=== PATIENT | male | born 1965 | race Two or more races ===

== ENCOUNTER 2022-11-18 21:51 | Inpatient (IN) | payer MEDICARE, OTHER ==
[~2022-11-18] VITALS: Ht 172.7 cm; Wt 89.5 kg
[2022-11-18 22:39] LABS: Basophils # (auto) 0 10 ^3/uL (0-0.2); Basophils % (auto) 0.2 % (0.0-2.0); Eosinophils # (auto) 0.1 10 ^3/uL (0-0.8); Eosinophils % (auto) 0.5 % (0.0-7.0); Hematocrit 35.2 % (41.0-53.0); Hemoglobin 11.5 g/dL (13.5-17.5); Lymphocytes # (auto) 0.6 10 ^3/uL (0.4-5.4); Lymphocytes % (auto) 5.4 % (10.0-50.0); Mean Corpuscular Hemoglobin 32.5 pg (28.0-32.0); Mean Corpuscular Hgb Conc. 32.7 g/dL (32.0-36.0); Mean Corpuscular Volume 99.4 fL (80.0-100.0); Monocytes # (auto) 0.6 10 ^3/uL (0-1.3); Monocytes % (auto) 5.4 % (0.0-12.0); Neutrophils # (auto) 10.6 10 ^3/uL (1.6-8.6); Neutrophils % (auto) 88.5 % (37.0-80.0); Nucleated Red Blood Cells % 0.1 %; Red Blood Cells 3.54 10^6/uL (4.5-5.90); White Blood Cell 11.9 10^3/uL (4.4-10.8)
[2022-11-18 22:56] LABS: Albumin 3.7 g/dL (3.4-5.0); Anion Gap 11 (5-15); Blood Alcohol < 3.0 mg/dL (0-5); Calcium 8.5 mg/dL (8.5-10.1); Carbon Dioxide 22 mmol/L (21-32); Chloride 104 mmol/L (98-107); Glucose 180 mg/dL (74-106); Magnesium 2.8 mg/dL (1.6-2.6); Salicylate < 1.7 mg/dL (2.8-20.0); Sodium 137 mmol/L (136-145)
[2022-11-18 22:59] LABS: Alanine Aminotransferase 62 U/L (16-61); Alkaline Phosphatase 118 U/L (45-117); Aspartate Aminotransferase 70 U/L (15-37); BUN/Creatinine Ratio 7.3 (10.0-20.0); Bilirubin, Total 0.4 mg/dL (0.2-1.0); GFR African American 4 mL/min; GFR Non-African American 4 mL/min; Total Protein 7.4 g/dL (6.4-8.2)
[2022-11-18 23:13] LABS: Acetaminophen < 2.0 ug/mL (10-30)
[2022-11-18 23:15] LABS: Potassium 5.6 mmol/L (3.5-5.1)
[2022-11-18 23:24] LABS: Blood Urea Nitrogen 110 mg/dL (7-18)
[2022-11-18 23:52] LABS: INR 0.94 (0.9-1.15); Partial Thromboplastin Time 30.1 sec (24.6-33.4)
[2022-11-19] MEDS ORDERED: InsuLIN REG 1unit/0.01ml Soln (100units/ml) IV ONE
[2022-11-19] MEDS ORDERED: DEXTROSE (50%) 50ML SYRG IV ONE
[2022-11-19] MEDS: CALCIUM GLUC 1,000mg/50ml-NS 50 ML IV SCH ×2 (01:07→01:17)
[2022-11-19] MEDS ORDERED: DEXTROSE 10% 250 ML IV ONE (01:13)
[2022-11-19] MEDS ORDERED: AZITHROMYCIN 500MG/ 250ML 250 ML IV ONE (02:15)
[2022-11-19] MEDS ORDERED: cefTRIAXone 1GM/50ML D5W 50 ML IV ONE (02:15)
[2022-11-19] MEDS ORDERED: HEPARIN SODIUM (PORCINE) 5000 UNITS/ML 1ML VIAL IV ONE (02:15)
[2022-11-19] MEDS ORDERED: HEPARIN DRIP/D5W 100UNITS/ML 250 ML IV SCH ×2 (02:15→02:45)
[2022-11-19] MEDS ORDERED: NITROGLYCERIN 50MG/250ML 250 ML IV ONE (02:15)
[2022-11-19] MEDS ORDERED: hydrALAZINE HCL 20 MG/ML VL IV ONE (02:45)
[2022-11-19 03:35] LABS: Albumin 3.8 g/dL (3.4-5.0); Calcium 9.3 mg/dL (8.5-10.1); Potassium 4.8 mmol/L (3.5-5.1)
[2022-11-19 03:39] LABS: BUN/Creatinine Ratio 7.6 (10.0-20.0); Bilirubin, Total 0.5 mg/dL (0.2-1.0)
[2022-11-19] MEDS ORDERED: hydrALAZINE HCL 20 MG/ML VL IV PRN (03:45)
[2022-11-19] MEDS ORDERED: NITROGLYCERIN 0.4 MG SL TAB SL PRN (03:45)
[2022-11-19] MEDS ORDERED: SODIUM ZIRCONIUM CYCL 10 GM PAK PO ONE (03:45)
[2022-11-19] MEDS ORDERED: DEXTROSE (50%) 50ML SYRG IV PRN (03:45)
[2022-11-19] MEDS ORDERED: ACETAMINOPHEN 325 MG TAB PO PRN (03:45)
[2022-11-19] MEDS ORDERED: ONDANSETRON HCL 4 MG/2 ML VIAL IV PRN (03:45)
[2022-11-19] MEDS ORDERED: MORPHINE SULFATE INJ 2 MG/ml SYRG IV PRN (03:45)
[2022-11-19 03:48] LABS: Basophils # (auto) 0.1 10 ^3/uL (0-0.2); Basophils % (auto) 1.1 % (0.0-2.0); Eosinophils # (auto) 0 10 ^3/uL (0-0.8); Eosinophils % (auto) 0.2 % (0.0-7.0); Hematocrit 35.9 % (41.0-53.0); Hemoglobin 12.1 g/dL (13.5-17.5); Lymphocytes % (auto) 11.4 % (10.0-50.0); Mean Corpuscular Hemoglobin 33.7 pg (28.0-32.0); Mean Corpuscular Hgb Conc. 33.7 g/dL (32.0-36.0); Monocytes # (auto) 0.7 10 ^3/uL (0-1.3); Monocytes % (auto) 7.8 % (0.0-12.0); Neutrophils # (auto) 7.3 10 ^3/uL (1.6-8.6); Neutrophils % (auto) 79.5 % (37.0-80.0); Red Blood Cells 3.59 10^6/uL (4.5-5.90); White Blood Cell 9.2 10^3/uL (4.4-10.8)
[2022-11-19] MEDS: ACCU-CHEK COMFORT CURVE STRIP VI SCH ×4 (06:00→23:18)
[2022-11-19] MEDS ORDERED: HYDROcodone-ACET 5/325MG TAB PO PRN (06:15)
[2022-11-19] MEDS: InsuLIN REG 1unit/0.01ml Soln (100units/ml) SC SCH ×4 (06:42→23:28)
[2022-11-19] MEDS: cefTRIAXone 1GM/50ML D5W 50 ML IV SCH (09:19)
[2022-11-19] MEDS ORDERED: PANTOPRAZOLE 40 MG TAB PO SCH (10:00)
[2022-11-19] MEDS: AZITHROMYCIN 500MG/ 250ML 250 ML IV SCH (10:31)
[2022-11-19] MEDS: amLODIPine BESYLATE 5 MG TAB PO SCH (10:34)
[2022-11-19] MEDS: ASPirin 81 mg TAB PO SCH (10:34)
[2022-11-19] MEDS: CARVEDILOL 3.125 MG TAB PO SCH ×2 (10:34→21:59)
[2022-11-19 12:03] LABS: INR 0.95 (0.9-1.15); Partial Thromboplastin Time 33.3 sec (24.6-33.4)
[2022-11-19 12:03] LABS: Urine Bacteria FEW /hpf (None Seen); Urine Blood TRACE /uL (Negative); Urine Specific Gravity 1.012 (1.001-1.035); Urine WBC 1 /hpf (0 - 3)
[2022-11-19 12:12] LABS: Alcohol, Urine < 3.0 mg/dL (0-10); Amphetamine Screen, Urine NEGATIVE (NEGATIVE); Barbiturate Scree,Urine NEGATIVE (NEGATIVE); Benzodiazephine Screen, Urine NEGATIVE (NEGATIVE); Cannabinoid Screen, Urine NEGATIVE (NEGATIVE); Cocaine Screen, Urine NEGATIVE (NEGATIVE); Opiate Scree,Urine NEGATIVE (NEGATIVE); Phencyclidine Screen, Urine NEGATIVE (NEGATIVE)
[2022-11-19 19:03] LABS: Magnesium 2.6 mg/dL (1.6-2.6); Phosphorus 8.1 mg/dL (2.5-4.90)
[2022-11-19] MEDS: ATORVASTATIN 20 MG TAB PO SCH (21:59)
[2022-11-19 22:00] VITALS: BP 137/79
[2022-11-20] MEDS ORDERED: GABA-339 PO (00:53)
[2022-11-20] MEDS ORDERED: ATOR10TA52 PO (00:53)
[2022-11-20] MEDS ORDERED: ASPI-543 PO (00:53)
[2022-11-20 05:00] VITALS: BP 145/87
[2022-11-20] MEDS: InsuLIN REG 1unit/0.01ml Soln (100units/ml) SC SCH ×4 (05:22→23:22)
[2022-11-20] MEDS: ACCU-CHEK COMFORT CURVE STRIP VI SCH ×5 (05:23→23:23)
[2022-11-20 05:46] LABS: Basophils # (auto) 0 10 ^3/uL (0-0.2); Basophils % (auto) 0.4 % (0.0-2.0); Eosinophils # (auto) 0.1 10 ^3/uL (0-0.8); Eosinophils % (auto) 0.8 % (0.0-7.0); Hematocrit 34.3 % (41.0-53.0); Hemoglobin 11.6 g/dL (13.5-17.5); Lymphocytes # (auto) 1.2 10 ^3/uL (0.4-5.4); Mean Corpuscular Hemoglobin 33.8 pg (28.0-32.0); Mean Corpuscular Hgb Conc. 33.9 g/dL (32.0-36.0); Mean Corpuscular Volume 99.8 fL (80.0-100.0); Monocytes # (auto) 0.8 10 ^3/uL (0-1.3); Neutrophils # (auto) 7.7 10 ^3/uL (1.6-8.6); Neutrophils % (auto) 78.8 % (37.0-80.0); Red Blood Cells 3.43 10^6/uL (4.5-5.90); Red Cell Distribution Width 14.9 % (11.8-14.3); White Blood Cell 9.7 10^3/uL (4.4-10.8)
[2022-11-20 05:56] LABS: Albumin 3.5 g/dL (3.4-5.0)
[2022-11-20 06:00] LABS: BUN/Creatinine Ratio 7.8 (10.0-20.0); Bilirubin, Total 0.5 mg/dL (0.2-1.0)
[2022-11-20 06:51] LABS: Potassium 5.8 mmol/L (3.5-5.1)
[2022-11-20] MEDS ORDERED: SODIUM CHL 0.9% 1000 ML BAG XX ONE (07:00)
[2022-11-20 08:54] VITALS: BP 159/79
[2022-11-20] MEDS: ASPirin 81 mg TAB PO SCH (08:59)
[2022-11-20] MEDS: CARVEDILOL 3.125 MG TAB PO SCH ×2 (09:00→21:41)
[2022-11-20] MEDS: amLODIPine BESYLATE 5 MG TAB PO SCH (09:01)
[2022-11-20] MEDS: cefTRIAXone 1GM/50ML D5W 50 ML IV SCH (09:03)
[2022-11-20 12:52] VITALS: BP 122/65
[2022-11-20] MEDS: AZITHROMYCIN 500MG/ 250ML 250 ML IV SCH (15:23)
[2022-11-20 17:08] VITALS: BP 127/68
[2022-11-20] MEDS: ATORVASTATIN 20 MG TAB PO SCH ×2 (21:33→21:53)
[2022-11-20 22:00] VITALS: BP 127/72
[2022-11-21 05:00] VITALS: BP 129/70
[2022-11-21] MEDS: InsuLIN REG 1unit/0.01ml Soln (100units/ml) SC SCH ×4 (06:00→23:29)
[2022-11-21] MEDS: ACCU-CHEK COMFORT CURVE STRIP VI SCH ×4 (06:05→23:29)
[2022-11-21 06:21] LABS: BUN/Creatinine Ratio 6.6 (10.0-20.0)
[2022-11-21 06:34] LABS: Basophils # (auto) 0 10 ^3/uL (0-0.2); Basophils % (auto) 0.3 % (0.0-2.0); Eosinophils # (auto) 0.1 10 ^3/uL (0-0.8); Eosinophils % (auto) 1.1 % (0.0-7.0); Hematocrit 38.3 % (41.0-53.0); Hemoglobin 13.2 g/dL (13.5-17.5); Lymphocytes % (auto) 12.5 % (10.0-50.0); Mean Corpuscular Hemoglobin 33.6 pg (28.0-32.0); Mean Corpuscular Hgb Conc. 34.4 g/dL (32.0-36.0); Mean Corpuscular Volume 97.6 fL (80.0-100.0); Monocytes # (auto) 0.7 10 ^3/uL (0-1.3); Monocytes % (auto) 7.9 % (0.0-12.0); Neutrophils # (auto) 6.6 10 ^3/uL (1.6-8.6); Neutrophils % (auto) 78.2 % (37.0-80.0); Nucleated Red Blood Cells % 0.1 %; Red Blood Cells 3.92 10^6/uL (4.5-5.90); Red Cell Distribution Width 14.5 % (11.8-14.3); White Blood Cell 8.4 10^3/uL (4.4-10.8)
[2022-11-21 09:00] VITALS: BP 140/61
[2022-11-21] MEDS: cefTRIAXone 1GM/50ML D5W 50 ML IV SCH (09:00)
[2022-11-21] MEDS: amLODIPine BESYLATE 5 MG TAB PO SCH (10:00)
[2022-11-21] MEDS: CARVEDILOL 3.125 MG TAB PO SCH ×2 (10:00→23:22)
[2022-11-21] MEDS: AZITHROMYCIN 500MG/ 250ML 250 ML IV SCH (10:00)
[2022-11-21] MEDS ORDERED: VERAPAMIL 2.5MG/ML INJ 2ML VIAL IV ONE (13:25)
[2022-11-21] MEDS ORDERED: ANGIOMAX 250 MG VIAL IV ONE (13:25)
[2022-11-21] MEDS ORDERED: fentaNYL CITRATE 100 MCG/2 ML VL ONE (13:25)
[2022-11-21] MEDS ORDERED: SODIUM CHL 0.9% 0 ML ONE (13:26)
[2022-11-21] MEDS ORDERED: LIDOCAINE 2%HCL (LOCAL ANESTH.) INJ 20ML MDV ONE (13:26)
[2022-11-21] MEDS ORDERED: MIDAZOLAM HCL 2MG/2ML 2ml VIAL (1mg/ml) ONE (13:26)
[2022-11-21] MEDS ORDERED: IODIXANOL 320MG/ML 100ML BTL IV ONE (13:30)
[2022-11-21] MEDS ORDERED: HEPARIN SODIUM (PORCINE) 5000 UNITS/ML 1ML VIAL ONE (13:30)
[2022-11-21 14:07] VITALS: BP 134/72
[2022-11-21 14:23] VITALS: BP 116/66
[2022-11-21 15:04] VITALS: BP 149/78
[2022-11-21 17:00] VITALS: BP 150/73
[2022-11-21] MEDS: ASPirin 81 mg TAB PO SCH (17:49)
[2022-11-21] MEDS: ATORVASTATIN 20 MG TAB PO SCH (23:23)
[2022-11-22 05:07] VITALS: BP 112/96
[2022-11-22] MEDS: InsuLIN REG 1unit/0.01ml Soln (100units/ml) SC SCH ×4 (05:46→23:30)
[2022-11-22] MEDS: ACCU-CHEK COMFORT CURVE STRIP VI SCH ×4 (05:46→23:27)
[2022-11-22 06:34] LABS: Basophils # (auto) 0.1 10 ^3/uL (0-0.2); Basophils % (auto) 0.6 % (0.0-2.0); Eosinophils # (auto) 0.1 10 ^3/uL (0-0.8); Eosinophils % (auto) 1.7 % (0.0-7.0); Hematocrit 38.5 % (41.0-53.0); Hemoglobin 13.3 g/dL (13.5-17.5); Lymphocytes # (auto) 1.4 10 ^3/uL (0.4-5.4); Mean Corpuscular Hemoglobin 33.7 pg (28.0-32.0); Mean Corpuscular Hgb Conc. 34.6 g/dL (32.0-36.0); Mean Corpuscular Volume 97.4 fL (80.0-100.0); Monocytes # (auto) 0.9 10 ^3/uL (0-1.3); Monocytes % (auto) 10.1 % (0.0-12.0); Neutrophils # (auto) 6.3 10 ^3/uL (1.6-8.6); Neutrophils % (auto) 71.6 % (37.0-80.0); Red Blood Cells 3.95 10^6/uL (4.5-5.90); Red Cell Distribution Width 14.8 % (11.8-14.3); White Blood Cell 8.8 10^3/uL (4.4-10.8)
[2022-11-22 06:40] LABS: BUN/Creatinine Ratio 7.2 (10.0-20.0); Calcium 8.8 mg/dL (8.5-10.1)
[2022-11-22 08:00] VITALS: BP 140/63
[2022-11-22] MEDS: ASPirin 81 mg TAB PO SCH (09:54)
[2022-11-22] MEDS: cefTRIAXone 1GM/50ML D5W 50 ML IV SCH (09:54)
[2022-11-22] MEDS: CARVEDILOL 3.125 MG TAB PO SCH ×2 (10:00→22:57)
[2022-11-22] MEDS: AZITHROMYCIN 500MG/ 250ML 250 ML IV SCH (11:54)
[2022-11-22 12:00] VITALS: BP 150/75
[2022-11-22 16:00] VITALS: BP 148/81
[2022-11-22] MEDS: amLODIPine BESYLATE 5 MG TAB PO SCH (16:10)
[2022-11-22] MEDS ORDERED: EPOETIN ALFA-EPBX 4,000 UNIT/ML VIAL SC ONE (21:00)
[2022-11-22 22:00] VITALS: BP 121/61
[2022-11-22] MEDS: ATORVASTATIN 20 MG TAB PO SCH (22:42)
[2022-11-23 00:32] VITALS: BP 121/61
[2022-11-23] MEDS ORDERED: SODIUM CHL 0.9% 1000 ML BAG XX ONE (07:00)
[2022-11-23] MEDS ORDERED: AZITHROMYCIN 250 MG TAB PO SCH (10:00)
[2022-11-23] MEDS ORDERED: EPOETIN ALFA-EPBX 4,000 UNIT/ML VIAL SC ONE (21:00)
== END 2022-11-23 02:44 | disposition short-term general hospital (02) | DRG 280 ==
LOC: EDBD 21:51 → ER 21:57 → TELE 11-19 03:44 → TELE-WESTW 11-19 21:10
PROVIDERS: ADMIT Nurse Practitioner; ATTEND Internal Medicine Pulmonary Disease
PROC: 5A1D70Z Performance of Urinary Filtration, Intermittent, Less than 6 Hours Per Day (ICD-10-PCS; 2022-11-20)
PROC: 4A023N7 Measurement of Cardiac Sampling and Pressure, Left Heart, Percutaneous Approach (ICD-10-PCS; principal; 2022-11-21)
PROC: B2111ZZ Fluoroscopy of Multiple Coronary Arteries using Low Osmolar Contrast (ICD-10-PCS; 2022-11-21)
PROC: B2151ZZ Fluoroscopy of Left Heart using Low Osmolar Contrast (ICD-10-PCS; 2022-11-21)
PROC: 5A1D70Z Performance of Urinary Filtration, Intermittent, Less than 6 Hours Per Day (ICD-10-PCS; 2022-11-22)
DX: I21.4 Non-ST elevation (NSTEMI) myocardial infarction (principal); G93.41 Metabolic encephalopathy; N18.6 End stage renal disease; J18.9 Pneumonia, unspecified organism; I50.23 Acute on chronic systolic (congestive) heart failure; I13.2 Hypertensive heart and chronic kidney disease with heart failure and with stage 5 chronic kidney disease, or end stage renal disease; I42.9 Cardiomyopathy, unspecified; G40.201 Localization-related (focal) (partial) symptomatic epilepsy and epileptic syndromes with complex partial seizures, not intractable, with status epilepticus; E11.22 Type 2 diabetes mellitus with diabetic chronic kidney disease; D64.9 Anemia, unspecified; R55 Syncope and collapse; H54.3 Unqualified visual loss, both eyes; R29.6 Repeated falls; E66.01 Morbid (severe) obesity due to excess calories; E78.5 Hyperlipidemia, unspecified; E87.5 Hyperkalemia; Z20.822 Contact with and (suspected) exposure to COVID-19; E11.65 Type 2 diabetes mellitus with hyperglycemia; F17.200 Nicotine dependence, unspecified, uncomplicated; G45.4 Transient global amnesia; I25.10 Atherosclerotic heart disease of native coronary artery without angina pectoris; I27.20 Pulmonary hypertension, unspecified; Z79.82 Long term (current) use of aspirin; I25.2 Old myocardial infarction; Z99.2 Dependence on renal dialysis; Z68.30 Body mass index [BMI] 30.0-30.9, adult; Z79.899 Other long term (current) drug therapy; Z86.73 Personal history of transient ischemic attack (TIA), and cerebral infarction without residual deficits; Z95.1 Presence of aortocoronary bypass graft
CPT/HCPCS: 36415; 70450; 70551; 71045; 71250; 72125; 74176; 76937; 80048; 80053; 80307; 80320; 80329; 81001; 82962; 83605; 83735; 83880; 83970; 84100; 84484; 85025; 85610; 85730; 87426; 87804; 90935; 93005; 93306; 93458; 93886; 96365; 96366; 96375; 97163; 99152; 99291; G0378; J0696; J1815; J2250; Q9967